=== PATIENT | male | born 1960 | race Caucasian/White ===

== ENCOUNTER 2020-07-05 20:50 | Emergency (ER) | payer MEDICARE, MEDICAID, OTHER, SELFPAY ==
--- NOTE | 2020-07-05 | XR_ITS ---
EXAMINATION: XR FINGER, RIGHT CLINICAL INFORMATION: Deep laceration to middle finger COMPARISON: None TECHNIQUE: Three views of the right long finger. FINDINGS: No fracture or radiopaque foreign body seen. Chronic appearing deformity and shortening of the fifth metacarpal may reflect sequelae of remote prior injury. Mild degenerative joint space narrowing of the interphalangeal joints. XR/XR finger RT min 2V IMPRESSION: No fracture or radiopaque foreign body seen with attention to the third digit.
[2020-07-05 22:07] VITALS: BP 143/79; PULSE 94; RESP 18; TEMP 37.2; O2SAT 97; BMI 25.7
--- NOTE | 2020-07-05 22:37 | ED.WOUNDLAC ---
HPI - Wound/Laceration General Chief Complaint: Wound/Laceration Stated Complaint: Finger laceration Time Seen by Provider: 07/05/20 22:18 Source: patient Mode of arrival: ambulatory Limitations: no limitations History of Present Illness HPI narrative: 59-year-old male with type 2 diabetes presents with laceration from a circular saw to the right dorsal aspect of the 3th finger. He tried to control the bleeding with super glue, and liquid Band-Aid. He did apply pressure dressing but could not control the bleeding. he does have full range of motion, brisk capillary refill, and full sensation to the finger. Related Data Previous Rx's Medication Instructions Recorded amoxicillin-pot clavulanate 1 tab PO Q12H 10 Days #20 tab 07/05/20 [Augmentin] oxycodone 5 mg PO Q8H PRN #10 tab 07/05/20 Allergies Allergy/AdvReac Type Severity Reaction Status Date / Time No Known Allergies Allergy Verified 07/05/20 22:14 [No Known Allergies*] Review of Systems Review of Systems: Constitutional: No Weight loss, No Fever, No Chills, No Night Sweats, No Fatigue, No Malaise ENT/Mouth: No Hearing loss, No Ear Pain, No Nasal Congestion, No Sinus Pain, No Hoarseness, No sore throat, No Rhinorrhea, No Swallowing Difficulty Eyes: No Eye Pain, No Swelling, No Redness, No Foreign Body, No Discharge, No Vision Changes Cardiovascular: No Chest Pain, No SOB, No Dyspnea on Exertion, No Orthopnea, No Edema, No Palpitations Respiratory: No Cough, No Sputum, No Wheezing, No Smoke Exposure, No Dyspnea Gastrointestinal: No Nausea, No Vomiting, No Diarrhea, No Constipation, No abdominal Pain, No Hematochezia, No Melena Genitourinary: no irregular bleeding, No Dysuria, No Urinary Frequency, No Hematuria, No Urinary Incontinence, No Urgency, No Flank Pain, No Urinary Flow Changes, No Hesitancy Musculoskeletal: No joint pain, No Myalgias, No Joint Swelling Skin: laceration to the right middle finger, No Skin Lesions, No rash Neuro: No Weakness, No Numbness, No Paresthesias, No Loss of Consciousness, No Dizziness, No Headache Psych: No Anxiety/Panic, No Depression, No SI/HI/AH/VH, No Social Issues Heme/Lymph: No Bruising, No Bleeding,No Lymphadenopathy Endocrine: No Polyuria, No Polydipsia, No Temperature Intolerance PMFSH Social History Social History Alcohol intake: never Smoked in Last 30 Days: No Use of substances other than those prescribed or required for medical reasons: No Advance Directives: No Physical Exam Vital Signs: Vital Signs: Last Vital Signs Temp 98.9 F 07/05/20 22:07 Pulse 94 07/05/20 22:07 Resp 18 07/05/20 22:07 BP 143/79 H 07/05/20 22:07 Pulse Ox 97 07/05/20 22:07 Body Mass Index 25.7 Appearance: Alert. Oriented X3. mild distress. Eyes: Pupils equal, round and reactive to light. ENT: Pharynx normal. Neck: Normal inspection. Neck supple. CVS: Normal heart rate and rhythm. Pulses normal. Respiratory: No respiratory distress. Breath sounds normal. Abdomen: Soft and nontender. Skin: 4 cm laceration to the dorsal aspect of the 3rd finger of the right hand, brisk capillary refill, pulses equal, Normal skin turgor. Extremities: No lower extremity edema. Neuro: No motor deficit. No sensory deficit. Course Course Course Narrative: 59-year-old male with diabetes presents with laceration to the right dorsal aspect of his 3rd finger. We will order x-rays, performed digital block, clean out the wound and removed the liquid Band-Aid and super glue. Patient does not recall when his last Tdap vaccine was updated, update today. Extensive cleaning with removal of debris and liquid Band-Aid. Digital block performed prior to cleaning, patient tolerated procedure well. Laceration repaired, prepped and draped in sterile fashion, 12 sutures well approximation. Approximately 50 mL of blood loss. 30 minutes status post laceration repair patient continues to be neurovascularly intact with brisk capillary refills and positive pulses that are equal to upper extremities. Patient advised not to soak finger, work, as he is a on site construction superintendent, and to pay close attention for signs and symptoms indicating infection. Patient does verbalize understanding of wound care, antibiotic use, and signs and symptoms indicating infection. Patient will be discharged home, patient verbalized understanding of and agrees to plan of care discharge home. Procedures Laceration Laceration 1: Site: upper extremity ( Right dorsal aspect middle finger) Side (If applicable): right Size (cm): 4 Description: irregular and contaminated Depth: simple, single layer Local Anesthetic: lidocaine 2% Amount of anesthesia used (mL): 8 Pre-repair: wound explored, irrigated extensively, extensive debridement and wound margins revised Skin layer closed with: nylon Size (cm): 4-0 Number of sutures: 12 Technique: simple, interrupted Nerve Block Nerve Block 1: Time out performed: Yes Local Anesthetic: lidocaine 2% Amount of anesthesia used (mL): 5 Side: right Nerve Blocks: digital Procedure Successful: Yes Patient Tolerated Procedure: well Complications: none MDM - Wound/Laceration Differential Diagnosis Differential diagnosis: Likely laceration Medical Records Attestation: I reviewed the patient's medical records. Imaging Data right hand x-ray: Attestation: I personally reviewed and interpreted this imaging study as follows: Radiologist's impression: TECHNIQUE: Three views of the right long finger. FINDINGS: No fracture or radiopaque foreign body seen. Chronic appearing deformity and shortening of the fifth metacarpal may reflect sequelae of remote prior injury. Mild degenerative joint space narrowing of the interphalangeal joints. XR/XR finger RT min 2V IMPRESSION: No fracture or radiopaque foreign body seen with attention to the third digit. Discharge Plan Discharge Clinical Impression: Laceration Patient Disposition: Home, Self-Care Instructions: Finger Laceration (ED) Additional Instructions: you were evaluated for laceration sustained by a circular saw. You have 12 sutures to the dorsal aspect of the 3rd finger on the right hand. You may clean the wound however do not soak it, do not swim, and do not work. If you notice any signs or symptoms indicating infection please return to the emergency department immediately or seek emergent medical attention by emergency department or primary care provider. You have diabetes, diabetics do not heal well. Again, do not work. Please return to the emergency department and or your primary care provider in 10 days to have sutures removed. Please take antibiotics Augmentin as directed. Complete the entire course of this medication. we prescribed oxycodone for pain management. This medication is A dangerous narcotic and has high risk for addiction and abuse. Do not drive or operate machinery while taking this medication this medication is constipating please use Colace and or MiraLax as needed to help soften stools. Drink plenty of fluids. We updated your Tdap vaccine today. Thank you for choosing this emergency department for evaluation. Please follow-up with primary care physician as needed. Return to the emergency department for any new, concerning, or worsening symptoms. Prescriptions: New amoxicillin-pot clavulanate [Augmentin] 875-125 mg tablet 1 tab PO Q12H 10 Days Qty: 20 RF: 0 oxycodone 5 mg tablet 5 mg PO Q8H PRN (Reason: pain) Qty: 10 RF: 0 Interventions: ED Discharge Assessment Last Done: 07/06/20 00:06 Discharge Date/Time: 07/05/20 23:45
[2020-07-05] MEDS: oxyCODONE HCl Immed Release 5 MG TABLET PO ×2 (23:39→23:40)
[2020-07-05] MEDS: Amoxicillin/Potassium Clav 875 MG TABLET PO (23:39)
[2020-07-05] MEDS: Lidocaine HCl 2 % MPF 5 ML VIAL 10 ML SUBCUT (23:41)
== END 2020-07-05 23:45 | disposition home or self-care (01) ==
PROVIDERS: Emergency Provider Internal Medicine; PCP Physician Assistant
DX: S61.212A Laceration without foreign body of right middle finger without damage to nail, initial encounter (principal); S60.412A Abrasion of right middle finger, initial encounter; Y28.9XXA Contact with unspecified sharp object, undetermined intent, initial encounter; Y93.9 Activity, unspecified; Y92.9 Unspecified place or not applicable; Y99.9 Unspecified external cause status; Z23 Encounter for immunization
CPT/HCPCS: 12002; 73140; 90471; 90715; 99284

== ENCOUNTER 2020-08-28 13:32 | Outpatient (REF) | payer MEDICARE, MEDICAID, OTHER, SELFPAY ==
--- NOTE | 2020-08-28 13:37 | XR_ITS ---
EXAMINATION: XR HAND, RIGHT CLINICAL INFORMATION: Cellulitis. COMPARISON: None TECHNIQUE: PA, lateral, and oblique views of the right hand. FINDINGS: There is no bony erosive changes, fracture or dislocation. There is minimal soft tissue swelling along the base of the first digit. Otherwise rest of the right hand and right fingers unremarkable. XR/XR hand RT min 3V IMPRESSION: Minimal soft tissue swelling base of first digit. No visible fracture or dislocation seen.
== END 2020-08-28 13:33 | disposition home or self-care (01) ==
LOC: HO.HMGCX 13:32
PROVIDERS: Visit Provider Nurse Practitioner Family
DX: Z13.89 Encounter for screening for other disorder (principal)
CPT/HCPCS: 73130

== ENCOUNTER 2020-08-28 14:18 | Outpatient (REF) | payer MEDICARE, MEDICAID, OTHER, SELFPAY | END 2020-08-28 14:19 | disposition home or self-care (01) | LOC: HO.LAB 14:18 | PROVIDERS: Visit Provider Nurse Practitioner Family | DX: L03.119 Cellulitis of unspecified part of limb (principal); Z51.89 Encounter for other specified aftercare | CPT/HCPCS: 73130; 87071; 87205 ==

== ENCOUNTER 2021-04-07 07:44 | Emergency (ER) | payer OTHER, MEDICARE, MEDICAID, SELFPAY ==
--- NOTE | ~2021-04-07 | US_ITS ---
EXAMINATION: US SCROTUM CLINICAL INFORMATION: Bilateral pain. COMPARISON: None TECHNIQUE: A sonogram of the scrotum was performed assessing samaniego-scale appearance and color Doppler flow. Spectral Doppler analysis of the arterial and venous flow were performed in the testes bilaterally. FINDINGS: RIGHT: Right testicle measures 5.0 x 2.0 x 2.8 cm, volume 16 mL. No focal testicular parenchymal lesions are visualized. Spectral Doppler analysis of the arterial and venous flow is normal in the right testis. Right epididymal head is normal in size with tiny epididymal cysts. No right hydrocele or varicocele is seen. Right epididymal Doppler flow is normal. LEFT: Left testicle measures 4.8 x 2.2 x 2.9 cm, volume 16 mL. No focal testicular parenchymal lesions are visualized. Spectral Doppler analysis of the arterial and venous flow is normal in the left testis. Left epididymal head is normal in size with a tiny epididymal cyst No left hydrocele or varicocele is seen. Left epididymal Doppler flow is normal. US/US scrotum IMPRESSION: Tiny incidental epididymal cysts bilaterally but no acute abnormality.
--- NOTE | ~2021-04-07 | CT_ITS ---
EXAMINATION: CT ABDOMEN AND PELVIS WITH CONTRAST CLINICAL INFORMATION: Patient with left lower quadrant abdominal pain COMPARISON: None. TECHNIQUE: Multidetector volumetric imaging was performed from the superior aspect of the liver through the pubic symphysis following administration of 85 cc of Omnipaque intravenous contrast Sagittal and coronal reformatted images were obtained on the technologist workstation.. This CT examination was performed using dose optimization techniques as appropriate, variously including the following: *Automated exposure control *Adjustment of mA and/or kV according to patient size (this includes techniques or standardized protocols for targeted exams where dose is matched to indication/reason for exam; i.e. extremities or head) *Use of iterative reconstruction technique DLP: 612 mGy-cm FINDINGS: LUNG BASES: Minimal dependent atelectasis LIVER, GALLBLADDER, AND BILIARY TREE: The liver is normal in size, shape, and attenuation. No focal hepatic lesion or biliary ductal dilatation is present. The gallbladder is unremarkable with no evidence of radiopaque gallstones, gallbladder wall thickening, or obvious pericholecystic inflammatory changes. PANCREAS: Unremarkable. SPLEEN: Unremarkable. ADRENAL GLANDS: Unremarkable. KIDNEYS AND URETERS: The kidneys are normal in size, shape, and attenuation. No hydronephrosis, hydroureter, or calculi seen. No perinephric stranding. BLADDER: Unremarkable. GASTROINTESTINAL TRACT: A few scattered colonic diverticula are seen but there is no evidence for diverticulitis. Moderate amount of stool seen throughout colon to the rectum. Normal-appearing appendix in the right lower quadrant. Visualized small bowel unremarkable. ABDOMINAL WALL: No significant hernia is appreciated. LYMPHOVASCULAR STRUCTURES: Vascular calcium lesion within the aorta iliac system. No bulky adenopathy PELVIC VISCERA: Unremarkable. OSSEOUS STRUCTURES: Degenerative changes in the spine CT/CT abdomen pelvis w con IMPRESSION: Scattered diverticulosis but no evidence for diverticulitis.
--- NOTE | ~2021-04-07 | US_ITS ---
EXAMINATION: US SCROTUM CLINICAL INFORMATION: Bilateral pain. COMPARISON: None TECHNIQUE: A sonogram of the scrotum was performed assessing samaniego-scale appearance and color Doppler flow. Spectral Doppler analysis of the arterial and venous flow were performed in the testes bilaterally. FINDINGS: RIGHT: Right testicle measures 5.0 x 2.0 x 2.8 cm, volume 16 mL. No focal testicular parenchymal lesions are visualized. Spectral Doppler analysis of the arterial and venous flow is normal in the right testis. Right epididymal head is normal in size with tiny epididymal cysts. No right hydrocele or varicocele is seen. Right epididymal Doppler flow is normal. LEFT: Left testicle measures 4.8 x 2.2 x 2.9 cm, volume 16 mL. No focal testicular parenchymal lesions are visualized. Spectral Doppler analysis of the arterial and venous flow is normal in the left testis. Left epididymal head is normal in size with a tiny epididymal cyst No left hydrocele or varicocele is seen. Left epididymal Doppler flow is normal. US/US scrotum doppler IMPRESSION: Tiny incidental epididymal cysts bilaterally but no acute abnormality.
--- NOTE | ~2021-04-07 | XR_ITS ---
EXAMINATION: CHEST 2 VIEWS CLINICAL INFORMATION: Chest pain x3 days . COMPARISON: 06/30/2019. TECHNIQUE: PA and lateral views of the chest obtained. FINDINGS: The lungs are well expanded. Chronic appearing reticular markings are seen but no superimposed focal infiltrate, effusion, edema, or pneumothorax. Cardiac and mediastinal silhouettes are within normal limits for technique. No acute bony abnormality seen XR/XR chest 2V IMPRESSION: No evidence of acute disease compared to 06/30/2019
[2021-04-07 08:04] VITALS: BP 134/81; PULSE 87; RESP 18; TEMP 36.9; O2SAT 98; BMI 24.8
[2021-04-07] MEDS: Ketorolac Tromethamine 15 MG/ML VIAL 30 MG IVPUSH (09:36)
[2021-04-07 09:37] LABS: MANUAL DIFF FLAG NO
[2021-04-07 09:41] LABS: Basophils Absolute Auto 0.1 X10*3/uL (0.0-0.2); Basophils Percent Auto 0.6 % (0-2); Eosinophils Absolute Auto 0.7 X10*3/uL (0.0-0.4); Eosinophils Percent Auto 5.1 % (0-4); Hematocrit 39.7 % (42-52); Hemoglobin 13.9 g/dl (14.0-18.0); Imm Gran Pct Auto 0.7 % (0.0-0.4); Lymphocytes Absolute Auto 3.5 X10*3/uL (1.2-4.9); Lymphocytes Percent Auto 23.9 % (20-40); Mean Corpuscular Hemoglobin 30.2 pg (27.0-33.0); Mean Corpuscular Volume 86.1 fL (80-98); Monocytes Absolute Auto 0.8 X10*3/uL (0.1-1.2); Monocytes Percent Auto 5.5 % (2-11); Neutrophils Absolute Auto 9.3 X10*3/uL (2.0-8.3); Neutrophils Percent Auto 64.2 % (45-73); Platelet Count 221 X10*3/uL (160-400); Red Blood Count 4.61 X10*6/uL (4.60-5.80); Red Cell Distribution Width 12.8 % (11.0-16.0); White Blood Count 14.4 X10*3/uL (4.8-10.8)
[2021-04-07 09:42] LABS: Prothrombin Time 10.8 SEC (9.9-13.0)
[2021-04-07 09:44] LABS: Appearance Urine CLEAR; Color Urine STRAW; Glucose Urine UA NEG (NEG); Leukocyte Esterase Urine NEG (NEG); Nitrite Urine NEG (NEG); Specific Gravity - Urine <= 1.005 (1.005-1.025); Urine Blood NEG (NEG); Urine Ketones NEG (NEG); Urine Protein NEG (NEG-TRACE)
[2021-04-07 10:02] LABS: Alanine Aminotransferase 19 U/L (0-40); Albumin Level 4.2 g/dL (3.5-5.0); Alkaline Phosphatase 51 U/L (39-117); Anion Gap 11 (12-20); Aspartate Amino Transferase 20 U/L (5-37); Bilirubin Total 0.3 mg/dL (0.0-1.0); Blood Urea Nitrogen 14 mg/dL (9-16); Calcium 9.3 mg/dL (8.4-10.2); Carbon Dioxide 24 mmol/L (22-29); Chloride 110 mmol/L (96-108); Creatinine Clr Calc Pharmacy 90.2; Estimated Glomerular Filt Rate > 60; Glucose Random 107 mg/dL (60-115); Potassium 4.1 mmol/L (3.3-5.1); Sodium 141 mmol/L (135-145); Total Protein 6.7 g/dL (6.5-8.0)
[2021-04-07 10:03] LABS: Magnesium 2.1 mg/dL (1.6-2.6)
[2021-04-07 10:06] LABS: B Type Natriuretic Peptide 19 pg/mL (<100); Troponin-I High Sensitivity < 3.5 ng/L (<3.5-35.0)
--- NOTE | 2021-04-07 10:20 | ED.CHESTPAIN ---
HPI - Chest Pain General Chief Complaint: Chest Pain Stated Complaint: chest pain Time Seen by Provider: 04/07/21 08:20 Source: patient Mode of arrival: ambulatory Limitations: no limitations History of Present Illness HPI narrative: 60-year-old male with a past medical history of hypertension, hyperlipidemia, COPD, cocaine dependence, opioid dependent, tobacco dependent, alcohol dependent who has a history of a inguinal hernia presenting to the ED with multiple complaints which include midsternal chest pain intermittently over the past 3 days that is sharp in sensation that radiates to his bilateral shoulders with associated shortness of breath/dyspnea on exertion/orthopnea. Patient has a 2nd complaint of a productive cough with green colored sputum over the past few months. Patient has a 3rd complaint of left lower quadrant abdominal pain with associated blood streak stools and hematuria over the past few days as well. He has a 4th complaint which he reports he has 2 lumps to his testicles that he is concerned about that has been there for a while and he has not had followed up. denies any dizziness, headaches, change in vision, nausea/vomiting, palpitations, radiation of the abdominal pain, dysuria, abnormal penile discharge, any trauma or falls recently, recent travel or sick contacts. Reports that he is not sexually active and he does not have any thoughts of STDs. Patient denies any recent drug usage including cocaine. He denies any recent alcohol usage MD complaint: chest pain Pertinent past history: other (See above) Onset (ago): day(s) (Three days) Timing of current episode: episodic and still present Prior episodes: Yes Onset: during rest Pain location: other (Midsternal) Pain radiation: left shoulder and right shoulder Severity: moderate Quality: sharp Relieving factors: nothing Exacerbating factors: nothing Treatment prior to arrival: none Risk Factors Coronary artery disease risk factors: smoking history, hyperlipidemia and hypertension Related Data Home Medications Medication Instructions Recorded Confirmed albuterol sulfate 90 mcg/actuation 0 mcg INHALATION 08/28/20 aerosol inhaler fluticasone furoate 100 INHALATION 08/28/20 mcg-vilanterol 25 mcg/dose inhalation powder linezolid 600 mg tablet 600 mg PO BID 08/28/20 naproxen 500 mg tablet 500 mg PO BID 08/28/20 omeprazole 20 mg capsule,delayed 20 mg PO DAILY 08/28/20 release ondansetron HCl 4 mg tablet mg PO 08/28/20 Previous Rx's Medication Instructions Recorded amoxicillin 875 mg-potassium 1 tab PO Q12H 10 Days #20 tab 07/05/20 clavulanate 125 mg tablet (Augmentin) oxycodone 5 mg tablet 5 mg PO Q8H PRN #10 tab 07/05/20 cephalexin 500 mg capsule (Keflex) 500 mg PO QID 10 Days #40 cap 08/28/20 doxycycline hyclate 100 mg capsule 100 mg PO BID 10 Days #20 cap 08/28/20 acetaminophen 500 mg tablet 1,000 mg PO QID PRN #14 tab 04/07/21 (Tylenol Extra Strength) amoxicillin 875 mg-potassium 1 tab PO BID 10 Days #20 tab 04/07/21 clavulanate 125 mg tablet (Augmentin) ibuprofen 800 mg tablet 800 mg PO Q8H PRN #14 tab 04/07/21 ondansetron HCl 4 mg tablet 4 mg PO Q8H PRN #14 tab 04/07/21 (Zofran) oxycodone 5 mg tablet 5 mg PO BID PRN #10 tab 04/07/21 Allergies Allergy/AdvReac Type Severity Reaction Status Date / Time No Known Allergies Allergy Verified 08/28/20 13:12 [No Known Allergies*] Review of Systems Review of Systems: Constitutional : No Weight loss, No Fever, No Chills, No Night Sweats, No Fatigue, No Malaise ENT/Mouth : No Hearing loss, No Ear Pain, No Nasal Congestion, No Sinus Pain, No Hoarseness, No sore throat, No Rhinorrhea, No Swallowing Difficulty Eyes: No Eye Pain, No Swelling, No Redness, No Foreign Body, No Discharge, No Vision Changes Cardiovascular : /shortness of breath/dyspnea on exertion/orthopnea, No Edema, No Palpitations Respiratory : Positive cough with green-colored sputum production, No Wheezing, No Smoke Exposure Gastrointestinal : Positive left lower quadrant abdominal plain with blood-streaked stools, No Nausea, No Vomiting, No Diarrhea, No Constipation, No Hematochezia, No Melena Genitourinary : no irregular bleeding, No Dysuria, No Urinary Frequency, No Hematuria, No Urinary Incontinence, No Urgency, No Flank Pain, No Urinary Flow Changes, No Hesitancy Musculoskeletal : No joint pain, No Myalgias, No Joint Swelling Skin : No Skin Lesions, No rash Neuro : No Weakness, No Numbness, No Paresthesias, No Loss of Consciousness, No Dizziness, No Headache Psych : No Anxiety/Panic, No Depression, No SI/HI/AH/VH, No Social Issues, Heme/Lymph: No Bruising, No Bleeding,No Lymphadenopathy Endocrine : No Polyuria, No Polydipsia, No Temperature Intolerance Yes all other systems are reviewed and are negative [facility] Past Medical History Attestation statement: The following information was validated with the patient. Social History Social History Alcohol intake: never Advance Directives: No Advance Directives Information Provided: No Physical Exam Vital Signs: Vital Signs: Last Vital Signs Temp 98.4 F 04/07/21 08:04 Pulse 87 04/07/21 08:04 Resp 18 04/07/21 08:04 BP 134/81 04/07/21 08:04 Pulse Ox 98 04/07/21 08:04 Body Mass Index 24.8 vital signs have been reviewed as normal and appeared to be correct. Blood pressure normal. Heart rate normal. Respiration rate normal. Temperature normal. Oxygen saturation normal. Appearance: Alert. Oriented X3. No acute distress. Head: Normal external exam. Normocephalic. Appearance: Alert. Oriented X3. No acute distress. Head: Normal external exam. Normocephalic. Atraumatic. Eyes: PERRLA. EOMI. Conjunctiva and sclera normal. Eyelids normal. ENT: Pharynx normal. Uvula midline. Moist mucous membranes. Neck: Normal inspection. Neck supple. FROM. No adenopathy. No meningeal signs. CVS: Normal heart rate and rhythm. Heart sound normal. Pulses normal throughout. No murmurs/rales/gallops. Respiratory: No respiratory distress. Painless inspiration. Breath sounds normal. No wheezes/rales/rhonchi noted. Chest nontender. No accessory muscle usage noted or decreased air movement noted. Abdomen: Soft and mild tenderness to palpation to left lower quadrant/left suprapubic/groin area with guarding. No rigidity. Bowel sounds normal in all 4 quadrants. No distention noted. No organomegaly noted. No visible injury noted. No rebound tenderness. Negative Rovsing sign. Negative obturator's sign. Negative psoas sign. Negative Van sign. : Chaperoned by ANA LUISA Valenzuela. Normal external exam. No ecchymosis/edema/erythema. No hernia noted. No inguinal lymphadenopathy noted. No lacerations/lesions/fluctuance/induration or tenderness noted. Normal penis. No Condyloma noted. No ecchymosis/erythema/swelling/edematous/mass/nodule/papules/pustules/vesicles. Not consistent with paraphimosis or phimosis. No ulcerations or lesions noted. The meatus is normal. No meatal discharge noted. No blood at the meatus. The scrotum is normal. Cremasteric reflex absent. No ecchymosis/edematous/erythema noted. Testicles are both descended bilaterally. No hydrocele noted. No inguinal hernia noted. Patient has tenderness to palpation to bilateral testicles questioning a mass versus a cyst. Otherwise no scrotal swelling. No ulcerations or varicocele. Testicles appear normal. They lie normal. Epididymides normal. No blue dot sign. Testicles are not enlarged. No epididymal induration. No testicular mass noted. No testicular swelling. No high-riding testicle noted. No testicular atrophy noted. Back: No CVA tenderness. Full range of motion noted. No rashes/lesion/induration/fluctuance or signs of infection noted. Skin: Skin warm and dry. Normal skin color. Normal skin turgor. No rashes/lesions/lacerations noted. Extremities: No lower extremity edema. No calf tenderness noted. Extremities exhibit normal range of motion. Extremities nontender. Neuro: Oriented X 3. No motor deficit. No sensory deficit. Reflexes normal. Normal steady gait. No focal neuro deficits noted. Vascular: + radial pulses/+ 2 distal pedal pulses/+2 dorsalis pedis b/l. Normal cap refill. No cyanosis noted to upper extremity nails and lower extremity toes nails. Course Course Course Narrative: 8:45am - 60-year-old male with a past medical history of hypertension, hyperlipidemia, COPD, cocaine dependence, opioid dependent, tobacco dependent, alcohol dependent who has a history of a inguinal hernia presenting to the ED with multiple complaints which include midsternal chest pain intermittently over the past 3 days that is sharp in sensation that radiates to his bilateral shoulders with associated shortness of breath/dyspnea on exertion/orthopnea.? Patient has a 2nd complaint of a productive cough with green colored sputum over the past few months.? Patient has a 3rd complaint of left lower quadrant abdominal pain with associated blood streak stools and hematuria over the past few days as well.? He has a 4th complaint which he reports he has 2 lumps to his testicles that he is concerned about that has been there for a while and he has not had followed up.? Plan: Labs, EKG, CXR, SARS/RSV/FLU, bilateral scrotal ultrasounds, CT scan of abdomen and pelvis with IV contrast, UA. Provide 30 mg of IV Toradol, 4 mg of IV Zofran and some IV fluids and re-evaluate. Reevaluation(s) Reevaluation #1: - labs return [place] [address]. Mild baseline anemia similar compared to prior. Chloride 110. Anion gap 11. Otherwise all other labs are within normal limits. UA within normal limits no evidence of UTI. Chest x-ray within normal limits no acute processes are noted. Bilateral scrotal ultrasound revealed incidental tiny epididymal cyst otherwise no other acute processes were noted. CT scan abdomen pelvis with IV contrast revealed diverticulosis without evidence of diverticulitis. - bedside stool occult obtained and negative. - therefore at this time will DC home with symptomatic treatment instructions return if any new or worsening symptoms to follow up with primary care provider. Patient understands agrees with this plan. Time: 11:35 [facility] - Chest Pain Medical Records Data Attestation: I reviewed the patient's medical records. Lab Data Attestation: I reviewed the patient's lab results. Result diagrams: 04/07/21 09:31 04/07/21 09:31 Labs: Lab Results 04/07/21 04/07/21 04/07/21 Range/Units 09:31 09:31 09:31 WBC 14.4 H (4.8-10.8) X10*3/uL RBC 4.61 (4.60-5.80) X10*6/uL Hgb 13.9 L (14.0-18.0) g/dl Hct 39.7 L (42-52) % MCV 86.1 (80-98) fL MCH 30.2 (27.0-33.0) pg MCHC 35.0 (31.0-36.0) g/dl RDW 12.8 (11.0-16.0) % Plt Count 221 (160-400) X10*3/uL MPV 9.0 L (9.4-12.4) fL Immature Gran % (Auto) 0.7 H (0.0-0.4) % Neut % (Auto) 64.2 (45-73) % Lymph % (Auto) 23.9 (20-40) % [place] % (Auto) 5.5 (2-11) % Eos % (Auto) 5.1 H (0-4) % Baso % (Auto) 0.6 (0-2) % Lymph # (Auto) 3.5 (1.2-4.9) X10*3/uL [place] # (Auto) 0.8 (0.1-1.2) X10*3/uL Eos # (Auto) 0.7 H (0.0-0.4) X10*3/uL Baso # (Auto) 0.1 (0.0-0.2) X10*3/uL Abs Immat Gran (auto) 0.10 H (0.00-0.03) X10*3/uL Absolute Neuts (auto) 9.3 H (2.0-8.3) X10*3/uL Absolute Nucleated RBC 0.000 (0.0-0.012) X10*3/uL Nucleated RBC % (auto) 0.0 (0.0-0.2) /100WBC PT 10.8 (9.9-13.0) SEC INR 1.0 (0.9-1.1) Sodium (135-145) mmol/L Potassium (3.3-5.1) mmol/L Chloride (96-108) mmol/L Carbon Dioxide (22-29) mmol/L Anion Gap (12-20) BUN (9-16) mg/dL Creatinine (0.5-1.4) mg/dL Estim Creat Clear Calc Estimated GFR Random Glucose (60-115) mg/dL Calcium (8.4-10.2) mg/dL Magnesium 2.1 (1.6-2.6) mg/dL Total Bilirubin (0.0-1.0) mg/dL AST (5-37) U/L ALT (0-40) U/L Alkaline Phosphatase (39-117) U/L Troponin I High Sens (<3.5-35.0) ng/L B-Natriuretic Peptide (<100) pg/mL Total Protein (6.5-8.0) g/dL Albumin (3.5-5.0) g/dL Urine Color Urine Appearance Urine pH (5.0-8.0) Ur Specific [place] (1.005-1.025) Urine Protein (NEG-TRACE) MG/DL Urine Glucose (UA) (NEG) MG/DL Urine Ketones (NEG) MG/DL Urine Blood (NEG) Urine Nitrite (NEG) Ur Leukocyte Esterase (NEG) 04/07/21 04/07/21 04/07/21 Range/Units 09:31 09:31 09:40 WBC (4.8-10.8) X10*3/uL RBC (4.60-5.80) X10*6/uL Hgb (14.0-18.0) g/dl Hct (42-52) % MCV (80-98) fL MCH (27.0-33.0) pg MCHC (31.0-36.0) g/dl RDW (11.0-16.0) % Plt Count (160-400) X10*3/uL MPV (9.4-12.4) fL Immature Gran % (Auto) (0.0-0.4) % Neut % (Auto) (45-73) % Lymph % (Auto) (20-40) % [place] % (Auto) (2-11) % Eos % (Auto) (0-4) % Baso % (Auto) (0-2) % Lymph # (Auto) (1.2-4.9) X10*3/uL [place] # (Auto) (0.1-1.2) X10*3/uL Eos # (Auto) (0.0-0.4) X10*3/uL Baso # (Auto) (0.0-0.2) X10*3/uL Abs Immat Gran (auto) (0.00-0.03) X10*3/uL Absolute Neuts (auto) (2.0-8.3) X10*3/uL Absolute Nucleated RBC (0.0-0.012) X10*3/uL Nucleated RBC % (auto) (0.0-0.2) /100WBC PT (9.9-13.0) SEC INR (0.9-1.1) Sodium 141 (135-145) mmol/L Potassium 4.1 (3.3-5.1) mmol/L Chloride 110 H (96-108) mmol/L Carbon Dioxide 24 (22-29) mmol/L Anion Gap 11 L (12-20) BUN 14 (9-16) mg/dL Creatinine 0.95 (0.5-1.4) mg/dL Estim Creat Clear Calc 90.2 Estimated GFR > 60 Random Glucose 107 (60-115) mg/dL Calcium 9.3 (8.4-10.2) mg/dL Magnesium (1.6-2.6) mg/dL Total Bilirubin 0.3 (0.0-1.0) mg/dL AST 20 (5-37) U/L ALT 19 (0-40) U/L Alkaline Phosphatase 51 (39-117) U/L Troponin I High Sens < 3.5 (<3.5-35.0) ng/L B-Natriuretic Peptide 19 (<100) pg/mL Total Protein 6.7 (6.5-8.0) g/dL Albumin 4.2 (3.5-5.0) g/dL Urine Color STRAW Urine Appearance CLEAR Urine pH 6.0 (5.0-8.0) Ur Specific [place] <= 1.005 (1.005-1.025) Urine Protein NEG (NEG-TRACE) MG/DL Urine Glucose (UA) NEG (NEG) MG/DL Urine Ketones NEG (NEG) MG/DL Urine Blood NEG (NEG) Urine Nitrite NEG (NEG) Ur Leukocyte Esterase NEG (NEG) Imaging Data Scrotal ultrasound: Attestation: I personally reviewed and interpreted this imaging study as follows: Radiologist's impression: FINDINGS: RIGHT: Right testicle measures 5.0 x 2.0 x 2.8 cm, volume 16 mL. No focal testicular parenchymal lesions are visualized. Spectral Doppler analysis of the arterial and venous flow is normal in the right testis. Right epididymal head is normal in size with tiny epididymal cysts. No right hydrocele or varicocele is seen. Right epididymal Doppler flow is normal. LEFT: Left testicle measures 4.8 x 2.2 x 2.9 cm, volume 16 mL. No focal testicular parenchymal lesions are visualized. Spectral Doppler analysis of the arterial and venous flow is normal in the left testis. Left epididymal head is normal in size with a tiny epididymal cyst No left hydrocele or varicocele is seen. Left epididymal Doppler flow is normal. US/US scrotum IMPRESSION: Tiny incidental epididymal cysts bilaterally but no acute abnormality. Chest x-ray: Attestation: I personally reviewed and interpreted this imaging study as follows: Radiologist's impression: FINDINGS: The lungs are well expanded. Chronic appearing reticular markings are seen but no superimposed focal infiltrate, effusion, edema, or pneumothorax. Cardiac and mediastinal silhouettes are within normal limits for technique. No acute bony abnormality seen XR/XR chest 2V IMPRESSION: No evidence of acute disease compared to 06/30/2019 ? CT scan abdomen pelvis with IV contrast: Attestation: I personally reviewed and interpreted this imaging study as follows: Radiologist's impression: FINDINGS: LUNG BASES: Minimal dependent atelectasis? LIVER, GALLBLADDER, AND BILIARY TREE: The liver is normal in size, shape, and attenuation. No focal hepatic lesion or biliary ductal dilatation is present. The gallbladder is unremarkable with no evidence of radiopaque gallstones, gallbladder wall thickening, or obvious pericholecystic inflammatory changes.? PANCREAS: Unremarkable.? SPLEEN: Unremarkable.? ADRENAL GLANDS: Unremarkable.? KIDNEYS AND URETERS: The kidneys are normal in size, shape, and attenuation. No hydronephrosis, hydroureter, or calculi seen. No perinephric stranding. ? BLADDER: Unremarkable.? GASTROINTESTINAL TRACT: A few scattered colonic diverticula are seen but there is no evidence for diverticulitis. Moderate amount of stool seen throughout colon to the rectum. Normal-appearing appendix in the right lower quadrant. Visualized small bowel unremarkable.? ABDOMINAL WALL: No significant hernia is appreciated.? LYMPHOVASCULAR STRUCTURES: Vascular calcium lesion within the aorta iliac system. No bulky adenopathy? PELVIC VISCERA: Unremarkable. OSSEOUS STRUCTURES: Degenerative changes in the spine? CT/CT abdomen pelvis w con IMPRESSION: Scattered diverticulosis but no evidence for diverticulitis. ECG Data ECG #1: Attestation: I personally reviewed and interpreted this ECG as follows: ECG interpretation date: 04/07/21 ECG interpretation time: 07:48 Interpretation: Normal sinus rhythm and a triplet of 84 with incomplete right bundle-branch block with a normal AL interval normal QRS duration and QT/QTC interval. No acute ischemic change are noted. Similar when compared to prior EKG on 06/30/2019. Critical Care Time Critical Care Time Critical Care Time: Yes Total Critical Care Time: 60 Attestation: I personally attest to this time spent taking care of the patient Discharge Plan Discharge Clinical Impression: COPD (chronic obstructive pulmonary disease), Atypical chest pain, Diverticulosis, Cyst of epididymis Patient Disposition: Home, Self-Care Instructions: Chest Pain (ED), Diverticulosis (ED), Diverticulitis Diet (ED), Scrotal Pain (ED) Prescriptions: New ibuprofen 800 mg tablet 800 mg PO Q8H PRN (Reason: pain) Qty: 14 RF: 0 ondansetron HCl [Zofran] 4 mg tablet 4 mg PO Q8H PRN (Reason: nausea and vomiting) Qty: 14 RF: 0 acetaminophen [Tylenol Extra Strength] 500 mg tablet 1,000 mg PO QID PRN (Reason: fever or pain) Qty: 14 RF: 0 oxycodone 5 mg tablet 5 mg PO BID PRN (Reason: pain) Qty: 10 RF: 0 amoxicillin-pot clavulanate [Augmentin] 875-125 mg tablet 1 tab PO BID 10 Days Qty: 20 RF: 0 No Action amoxicillin-pot clavulanate [Augmentin] 875-125 mg tablet 1 tab PO Q12H 10 Days Qty: 20 RF: 0 oxycodone 5 mg tablet 5 mg PO Q8H PRN (Reason: pain) Qty: 10 RF: 0 linezolid 600 mg tablet 600 mg PO BID RF: 0 Breo Ellipta 100-25 mcg/dose blister with device inhalation RF: 0 omeprazole 20 mg capsule,delayed release(DR/EC) 20 mg PO DAILY RF: 0 ondansetron HCl 4 mg tablet PO RF: 0 naproxen 500 mg tablet 500 mg PO BID RF: 0 albuterol sulfate 90 mcg/actuation HFA aerosol inhaler 0 mcg inhalation RF: 0 cephalexin [Keflex] 500 mg capsule 500 mg PO QID 10 Days Qty: 40 RF: 0 doxycycline hyclate 100 mg capsule 100 mg PO BID 10 Days Qty: 20 RF: 0 Referrals: Vanwagner,Alfie, PA [Primary Care Provider] - 2 days Interventions: ED Discharge Assessment Last Done: 04/07/21 11:32 Discharge Date/Time: 04/07/21 11:32 Print Language: Luxembourgish
[2021-04-07] MEDS: iohexoL 350 MG/ML 100 ML INFUS..BTL 85 ML IV (10:49)
[2021-04-07 11:38] LABS: Influenza A PCR NEGATIVE (Negative); Influenza B PCR NEGATIVE (Negative); Resp Syncy Virus RNA Qual PCR NEGATIVE (Negative); SARS COV2 PCR INHOUSE NEGATIVE (Negative)
== END 2021-04-07 11:32 | disposition home or self-care (01) ==
PROVIDERS: Physician Assistant Medical; Emergency Provider Emergency Medicine Emergency Medical Services; PCP Physician Assistant
DX: R07.89 Other chest pain (principal); J44.9 Chronic obstructive pulmonary disease, unspecified; K57.90 Diverticulosis of intestine, part unspecified, without perforation or abscess without bleeding; N50.3 Cyst of epididymis; R06.02 Shortness of breath; I10 Essential (primary) hypertension; E78.5 Hyperlipidemia, unspecified; F14.20 Cocaine dependence, uncomplicated; F11.20 Opioid dependence, uncomplicated; F17.210 Nicotine dependence, cigarettes, uncomplicated; F10.20 Alcohol dependence, uncomplicated; Y90.9 Presence of alcohol in blood, level not specified; Z20.822 Contact with and (suspected) exposure to COVID-19; Z79.899 Other long term (current) drug therapy
CPT/HCPCS: 0241U; 36415; 71046; 74177; 76870; 80053; 81003; 83735; 83880; 84484; 85025; 85610; 93975; 96374; 96375; 99285; 99291; J1885; J2405; Q9967

== ENCOUNTER 2021-08-03 20:51 | Emergency (ER) | payer MEDICARE, MEDICAID, SELFPAY ==
--- NOTE | 2021-08-03 | ECG_ITS ---
Test Reason : SOB Blood Pressure : / mmHG Vent. Rate : 084 BPM Atrial Rate : 084 BPM P-R Int : 134 ms QRS Dur : 102 ms QT Int : 396 ms P-R-T Axes : 063 063 063 degrees QTc Int : 467 ms Normal sinus rhythm Incomplete right bundle branch block Borderline ECG When compared with ECG of 30-JUN-2019 00:01, No significant change was found Referred By: Generic ED Physician Electronically Signed By:LAMONT ALLEN
--- NOTE | ~2021-08-03 | XR_ITS ---
EXAMINATION: XR CHEST CLINICAL INFORMATION: Shortness of breath COMPARISON: 04/07/2021 TECHNIQUE: Frontal view of the chest was obtained. FINDINGS: Normal symmetric lung volumes. No parenchymal consolidation. Chronic lung markings. No pleural effusion. No pneumothorax. Cardiomediastinal silhouette and pulmonary vascularity are within normal limits. Aorta is atherosclerotic. No acute osseous abnormalities. XR/XR chest 1V IMPRESSION: No focal consolidation.
[2021-08-03 21:08] VITALS: BP 123/71; PULSE 84; RESP 19; TEMP 37.4; O2SAT 97; BMI 26.4
[2021-08-03 21:10] VITALS: BP 125/82; PULSE 80; O2SAT 97
[2021-08-03 21:19] LABS: MANUAL DIFF FLAG NO
[2021-08-03 21:26] LABS: Basophils Absolute Auto 0.1 X10*3/uL (0.0-0.2); Basophils Percent Auto 0.5 % (0-2); Eosinophils Absolute Auto 0.5 X10*3/uL (0.0-0.4); Eosinophils Percent Auto 5.2 % (0-4); Hematocrit 40.4 % (42.0-52.0); Hemoglobin 13.7 g/dl (14.0-18.0); Imm Gran Abs Auto 0.04 X10*3/uL (0.00-0.03); Imm Gran Pct Auto 0.4 % (0.0-0.4); Lymphocytes Absolute Auto 3.7 X10*3/uL (1.2-4.9); Lymphocytes Percent Auto 39.9 % (20-40); Mean Corpuscular HGB Conc 33.9 g/dl (31.0-36.0); Mean Corpuscular Hemoglobin 29.2 pg (27.0-33.0); Mean Corpuscular Volume 86.1 fL (80.0-98.0); Mean Platelet Volume 9.1 fL (9.4-12.4); Monocytes Absolute Auto 0.8 X10*3/uL (0.1-1.2); Monocytes Percent Auto 8.3 % (2-11); Neutrophils Absolute Auto 4.2 x10*3/uL (2.0-8.3); Neutrophils Percent Auto 45.7 % (45-73); Platelet Count 265 X10*3/uL (160-400); Red Blood Count 4.69 X10*6/uL (4.60-5.80); Red Cell Distribution Width 13.2 % (11.0-16.0); White Blood Count 9.3 X10*3/uL (4.8-10.8)
[2021-08-03 21:31] LABS: Anion Gap 15 (12-20); Blood Urea Nitrogen 20 mg/dL (9-16); Carbon Dioxide 24 mmol/L (22-29); Chloride 105 mmol/L (96-108); Creatinine Clr Calc Pharmacy 100.8; Estimated Glomerular Filt Rate > 60; Glucose Random 106 mg/dL (60-115); Potassium 4.6 mmol/L (3.3-5.1); Sodium 139 mmol/L (135-145)
[2021-08-03 21:39] LABS: B Type Natriuretic Peptide 52 pg/mL (<100); Troponin-I High Sensitivity < 3.5 ng/L (<3.5-35.0)
[2021-08-03 21:58] LABS: Influenza A PCR NEGATIVE (Negative); Influenza B PCR NEGATIVE (Negative); Resp Syncy Virus RNA Qual PCR NEGATIVE (Negative); SARS COV2 PCR INHOUSE NEGATIVE (Negative)
--- NOTE | 2021-08-03 22:40 | ED_ITS ---
HPI - SOB/Dyspnea General Chief Complaint: Dyspnea Stated Complaint: sob copd Time Seen by Provider: 08/03/21 22:39 Source: patient Mode of arrival: EMS Limitations: no limitations History of Present Illness HPI Narrative: Patient history of COPD chronic smoker complaining of increased shortness of breath with chest tightness for long time got worse for last 6 days cough with mucopurulent phlegm no fever no chills was feeling subjectively hot . Patient also used cocaine which he used last time 4 days ago. EMS gave him DuoNeb treatment and 125 mg Solu-Medrol prior to arrival Related Data Home Medications Medication Instructions Recorded Confirmed albuterol sulfate 90 mcg/actuation 0 mcg INHALATION 08/28/20 aerosol inhaler fluticasone furoate 100 INHALATION 08/28/20 mcg-vilanterol 25 mcg/dose inhalation powder linezolid 600 mg tablet 600 mg PO BID 08/28/20 naproxen 500 mg tablet 500 mg PO BID 08/28/20 omeprazole 20 mg capsule,delayed 20 mg PO DAILY 08/28/20 release ondansetron HCl 4 mg tablet mg PO 08/28/20 Previous Rx's Medication Instructions Recorded amoxicillin 875 mg-potassium 1 tab PO Q12H 10 Days #20 tab 07/05/20 clavulanate 125 mg tablet (Augmentin) oxycodone 5 mg tablet 5 mg PO Q8H PRN #10 tab 07/05/20 cephalexin 500 mg capsule (Keflex) 500 mg PO QID 10 Days #40 cap 08/28/20 doxycycline hyclate 100 mg capsule 100 mg PO BID 10 Days #20 cap 08/28/20 acetaminophen 500 mg tablet 1,000 mg PO QID PRN #14 tab 04/07/21 (Tylenol Extra Strength) amoxicillin 875 mg-potassium 1 tab PO BID 10 Days #20 tab 04/07/21 clavulanate 125 mg tablet (Augmentin) ibuprofen 800 mg tablet 800 mg PO Q8H PRN #14 tab 04/07/21 ondansetron HCl 4 mg tablet 4 mg PO Q8H PRN #14 tab 04/07/21 (Zofran) oxycodone 5 mg tablet 5 mg PO BID PRN #10 tab 04/07/21 albuterol sulfate 90 mcg/actuation 2 puff INHALATION Q4-6H PRN #8.5 g 08/04/21 aerosol inhaler (ProAir HFA) benzonatate 200 mg capsule 200 mg PO TID PRN #30 cap 08/04/21 cefuroxime axetil 500 mg tablet 500 mg PO BID #20 tab 08/04/21 dexamethasone 6 mg tablet 6 mg PO DAILY #7 tab 08/04/21 (Decadron) doxycycline hyclate 100 mg tablet 100 mg PO BID #20 tab 08/04/21 Allergies Allergy/AdvReac Type Severity Reaction Status Date / Time No Known Allergies Allergy Verified 08/03/21 21:02 [No Known Allergies*] Review of Systems Review of Systems: Yes all other systems are reviewed and are negative [facility] Social History Social History Alcohol intake: never Advance Directives: No Advance Directives Information Provided: Yes Physical Exam Vital Signs: Vital Signs: Last Vital Signs Temp 99.4 F 08/03/21 21:08 Pulse 87 08/04/21 01:46 Resp 19 08/04/21 01:46 BP 120/68 08/04/21 01:46 Pulse Ox 98 08/04/21 01:46 BMI result Body Mass Index 26.4 Appearance: Alert. Oriented X3. No acute distress. Frequent dry cough ENT: Pharynx normal. Oral Mucosa moist Neck: Normal inspection. Neck supple. CVS: Normal heart rate and rhythm. Pulses normal. Respiratory: No respiratory distress. Equal air entry bilateral, bilateral wheezing and rhonchi no rales Abdomen: Soft and nontender. Bowel sounds are present, no mass palpable, no CVA tenderness Skin: Skin warm and dry. Normal skin color. Normal skin turgor. Extremities: No lower extremity edema. No calf tenderness Neuro: Oriented X 3. MDM - SOB/Dyspnea MDM Narrative Medical decision making narrative: Patient is smoker with chronic bronchitis COPD COVID test negative chest x-ray negative saturating 97% on room air improved after Solu-Medrol given by EMS and nebulizing treatment given here. Will discharge patient home on Decadron and Ceftin doxycycline and advised to continue inhaler and stop smoking Differential Diagnosis Differential diagnosis: Likely acute exacerbation of chronic obstructive airways disease Lab Data Attestation: I reviewed the patient's lab results. Result diagrams: 08/03/21 21:11 08/03/21 21:11 Labs: Lab Results 08/03/21 08/03/21 08/03/21 Range/Units 21:08 21:11 21:11 WBC 9.3 (4.8-10.8) X10*3/uL RBC 4.69 (4.60-5.80) X10*6/uL Hgb 13.7 L (14.0-18.0) g/dl Hct 40.4 L (42.0-52.0) % MCV 86.1 (80.0-98.0) fL MCH 29.2 (27.0-33.0) pg MCHC 33.9 (31.0-36.0) g/dl RDW 13.2 (11.0-16.0) % Plt Count 265 (160-400) X10*3/uL MPV 9.1 L (9.4-12.4) fL Immature Gran % (Auto) 0.4 (0.0-0.4) % Neut % (Auto) 45.7 (45-73) % Lymph % (Auto) 39.9 (20-40) % [place] % (Auto) 8.3 (2-11) % Eos % (Auto) 5.2 H (0-4) % Baso % (Auto) 0.5 (0-2) % Lymph # (Auto) 3.7 (1.2-4.9) X10*3/uL [place] # (Auto) 0.8 (0.1-1.2) X10*3/uL Eos # (Auto) 0.5 H (0.0-0.4) X10*3/uL Baso # (Auto) 0.1 (0.0-0.2) X10*3/uL Abs Immat Gran (auto) 0.04 H (0.00-0.03) X10*3/uL Absolute Neuts (auto) 4.2 (2.0-8.3) x10*3/uL Absolute Nucleated RBC 0.000 (0.0-0.012) X10*3/uL Nucleated RBC % (auto) 0.0 (0.0-0.2) /100WBC Sodium 139 (135-145) mmol/L Potassium 4.6 (3.3-5.1) mmol/L Chloride 105 (96-108) mmol/L Carbon Dioxide 24 (22-29) mmol/L Anion Gap 15 (12-20) BUN 20 H (9-16) mg/dL Creatinine 0.84 (0.5-1.4) mg/dL Estim Creat Clear Calc 100.8 Estimated GFR > 60 Random Glucose 106 (60-115) mg/dL Calcium 10.0 D (8.4-10.2) mg/dL Troponin I High Sens (<3.5-35.0) ng/L B-Natriuretic Peptide (<100) pg/mL Influenza Type A (PCR) NEGATIVE (Negative) Influenza Type B (PCR) NEGATIVE (Negative) RSV RNA Qual (PCR) NEGATIVE (Negative) SARS-CoV-2 RNA (RT-PCR) NEGATIVE (Negative) 08/03/21 Range/Units 21:11 WBC (4.8-10.8) X10*3/uL RBC (4.60-5.80) X10*6/uL Hgb (14.0-18.0) g/dl Hct (42.0-52.0) % MCV (80.0-98.0) fL MCH (27.0-33.0) pg MCHC (31.0-36.0) g/dl RDW (11.0-16.0) % Plt Count (160-400) X10*3/uL MPV (9.4-12.4) fL Immature Gran % (Auto) (0.0-0.4) % Neut % (Auto) (45-73) % Lymph % (Auto) (20-40) % [place] % (Auto) (2-11) % Eos % (Auto) (0-4) % Baso % (Auto) (0-2) % Lymph # (Auto) (1.2-4.9) X10*3/uL [place] # (Auto) (0.1-1.2) X10*3/uL Eos # (Auto) (0.0-0.4) X10*3/uL Baso # (Auto) (0.0-0.2) X10*3/uL Abs Immat Gran (auto) (0.00-0.03) X10*3/uL Absolute Neuts (auto) (2.0-8.3) x10*3/uL Absolute Nucleated RBC (0.0-0.012) X10*3/uL Nucleated RBC % (auto) (0.0-0.2) /100WBC Sodium (135-145) mmol/L Potassium (3.3-5.1) mmol/L Chloride (96-108) mmol/L Carbon Dioxide (22-29) mmol/L Anion Gap (12-20) BUN (9-16) mg/dL Creatinine (0.5-1.4) mg/dL Estim Creat Clear Calc Estimated GFR Random Glucose (60-115) mg/dL Calcium (8.4-10.2) mg/dL Troponin I High Sens < 3.5 (<3.5-35.0) ng/L B-Natriuretic Peptide 52 (<100) pg/mL Influenza Type A (PCR) (Negative) Influenza Type B (PCR) (Negative) RSV RNA Qual (PCR) (Negative) SARS-CoV-2 RNA (RT-PCR) (Negative) Discharge Plan Discharge Clinical Impression: COPD (chronic obstructive pulmonary disease) Qualifiers: COPD type: chronic bronchitis Chronic bronchitis type: mucopurulent Qualified Code(s): J41.1 - Mucopurulent chronic bronchitis Patient Disposition: Home, Self-Care Instructions: Chronic Bronchitis (ED) Additional Instructions: Stop smoking and using cocaine Take antibiotics and prednisone as advised Use nebulizing treatment every 4-6 hours as advised Follow-up with PCP if not better Prescriptions: New dexamethasone [Decadron] 6 mg tablet 6 mg PO DAILY Qty: 7 RF: 0 cefuroxime axetil 500 mg tablet 500 mg PO BID Qty: 20 RF: 0 doxycycline hyclate 100 mg tablet 100 mg PO BID Qty: 20 RF: 0 benzonatate 200 mg capsule 200 mg PO TID PRN (Reason: cough) Qty: 30 RF: 0 albuterol sulfate [ProAir HFA] 90 mcg/actuation HFA aerosol inhaler 2 puff inhalation Q4-6H PRN (Reason: shortness of breath or wheezing) Qty: 8.5 RF: 0 No Action amoxicillin-pot clavulanate [Augmentin] 875-125 mg tablet 1 tab PO Q12H 10 Days Qty: 20 RF: 0 oxycodone 5 mg tablet 5 mg PO Q8H PRN (Reason: pain) Qty: 10 RF: 0 ibuprofen 800 mg tablet 800 mg PO Q8H PRN (Reason: pain) Qty: 14 RF: 0 ondansetron HCl [Zofran] 4 mg tablet 4 mg PO Q8H PRN (Reason: nausea and vomiting) Qty: 14 RF: 0 acetaminophen [Tylenol Extra Strength] 500 mg tablet 1,000 mg PO QID PRN (Reason: fever or pain) Qty: 14 RF: 0 oxycodone 5 mg tablet 5 mg PO BID PRN (Reason: pain) Qty: 10 RF: 0 amoxicillin-pot clavulanate [Augmentin] 875-125 mg tablet 1 tab PO BID 10 Days Qty: 20 RF: 0 linezolid 600 mg tablet 600 mg PO BID RF: 0 Breo Ellipta 100-25 mcg/dose blister with device inhalation RF: 0 omeprazole 20 mg capsule,delayed release(DR/EC) 20 mg PO DAILY RF: 0 ondansetron HCl 4 mg tablet PO RF: 0 naproxen 500 mg tablet 500 mg PO BID RF: 0 albuterol sulfate 90 mcg/actuation HFA aerosol inhaler 0 mcg inhalation RF: 0 cephalexin [Keflex] 500 mg capsule 500 mg PO QID 10 Days Qty: 40 RF: 0 doxycycline hyclate 100 mg capsule 100 mg PO BID 10 Days Qty: 20 RF: 0
[2021-08-03] MEDS: Albuterol Sulfate (0.083%) 2.5 MG/3 ML VIAL.NEB 5 MG INHALE (23:00)
[2021-08-03] MEDS: Albuterol/Iprat 2.5/0.5MG 3 ML AMPUL.NEB INHALE (23:00)
[2021-08-03 23:01] VITALS: PULSE 84; O2SAT 97
[2021-08-03 23:23] VITALS: BP 133/73; PULSE 77; RESP 20; O2SAT 98
[2021-08-03] MEDS: guaiFEN/Codeine SF 200/20/10ML 10 ML LIQUID PO (23:27)
[2021-08-04 01:34] VITALS: PULSE 89; O2SAT 97
[2021-08-04] MEDS: Albuterol Sulfate (0.083%) 2.5 MG/3 ML VIAL.NEB 7.5 MG INHALE (01:34)
[2021-08-04 01:46] VITALS: BP 120/68; PULSE 87; RESP 19; O2SAT 98
[2021-08-04 01:54] LABS: Appearance Urine CLOUDY; Color Urine YELLOW; Glucose Urine UA NEG (NEG); Leukocyte Esterase Urine NEG (NEG); Nitrite Urine NEG (NEG); Specific Gravity - Urine 1.015 (1.005-1.025); Urine Blood NEG (NEG); Urine Ketones NEG (NEG); Urine Protein NEG (NEG-TRACE)
== END 2021-08-04 02:13 | disposition home or self-care (01) ==
PROVIDERS: Emergency Provider Internal Medicine
DX: J41.1 Mucopurulent chronic bronchitis (principal); Z20.822 Contact with and (suspected) exposure to COVID-19; R06.02 Shortness of breath; F17.200 Nicotine dependence, unspecified, uncomplicated
CPT/HCPCS: 0241U; 36415; 71045; 80048; 81003; 83880; 84484; 85025; 87040; 93005; 94640; 94644; 94645; 99284; 99285